=== PATIENT | male | born 1975 | race Caucasian/White ===

== ENCOUNTER 2021-03-01 16:40 | Emergency (ER) | payer OTHER, SELFPAY ==
--- NOTE | ~2021-03-01 | XR_ITS ---
EXAMINATION: XR chest 2V DATE: 03/01/2021 17:11 INDICATION: Shortness of breath, cough, tachypnea. COVID positive. TECHNIQUE: frontal and lateral views of the chest were obtained. COMPARISON: None FINDINGS: Patchy bilateral airspace opacities most prominent in the posterior mid and lower lung zones. No pleu ral effusion or pneumothorax. The cardiomediastinal silhouette is normal. Visualized bones and soft t issues are unremarkable. IMPRESSION: 1. Patchy bilateral airspace opacities, most likely COVID pneumonia. Reviewed, dictated and finalized at location [facility]
[2021-03-01 16:46] VITALS: BP 135/91; PULSE 111; RESP 36; TEMP 38.8; O2SAT 98
--- NOTE | 2021-03-01 17:34 | ED.URI ---
HPI - URI/Sore Throat General Chief Complaint: Upper Respiratory Infection Stated Complaint: cough Time Seen by Provider: 03/01/21 17:15 Source: patient and RN notes reviewed Mode of arrival: ambulatory Limitations: no limitations History of Present Illness HPI Narrative: Patient presents today complaining of a 3-day history of cough, rib pain bilaterally, and shortness of breath. He tested positive for COVID-19 approximately 10 days ago and said he has had a subsequent negative test.States those symptoms of his Covid have resolved, but these new symptoms of cough and shortness of breath came up 3 days ago. Denies history of asthma or COPD. He has been taking Mucinex and cough medicine at home without relief. He has not smoked a cigarette for approximately 1 month. He has not been vaccinated against COVID-19. MD elicited complaint: cough Related Data Home Medications Medication Instructions Recorded Confirmed No Home Medications 03/01/21 03/01/21 Allergies Allergy/AdvReac Type Severity Reaction Status Date / Time No Known Drug Allergies Allergy Unknown Verified 10/02/16 12:55 Review of Systems Review of Systems: CONSTITUTIONAL: Denies body aches, fever, chills, or sweats. EYES: Denies visual changes, redness, or discharge. ENT: Denies rhinorrhea, congestion, sore throat, or otalgia. CARDIOVASCULAR: Denies chest pain, palpitations, or edema. RESPIRATORY: +Cough, shortness of breath, bilateral rib pain GASTROINTESTINAL: Denies abdominal pain, nausea, vomiting, or diarrhea. GENITOURINARY: Denies dysuria or hematuria. SKIN: Denies rash, itching, or wounds. MUSCULOSKELETAL: Denies back pain, joint pain, or myalgia. NEUROLOGIC: Denies headache, numbness, tingling, or weakness. PSYCH: Denies depression or anxiety. PMFSH Comments At time of signature, I have reviewed and agree with nursing past medical, surgical, social and family history unless otherwise noted. Please see nursing chart for further information. There is no relevant family history pertinent to the presenting complaint Exam Narrative: GENERAL: Ill appearing, well-nourished. HEAD: Normocephalic, atraumatic. EYES: EOMI. No redness or drainage. Conjunctivae normal. ENT: Mucous membranes pink and moist. Nares clear. No rhinorrhea. TMs normal bilaterally. Throat Mildly Erythematous. Uvula midline. NECK: Normal AROM. Supple. No lymphadenopathy. CHEST: Tachypnea. Diminished in the bilateral bases. Occasional tripoding. HEART: Regular rate and rhythm. No murmur appreciated. Normal peripheral pulses. EXTREMITIES: Normal range of motion. No edema. SKIN: Warm, dry, no rash. Capillary refill normal. Normal skin turgor. NEURO: No focal deficits. Alert and oriented x3. Gait steady. PSYCH: Normal affect. No signs of depression or anxiety. Course Course Emergency Course: 1806- After DuoNeb, patient's breath sounds have slightly improved. Now upon auscultation, the crackles in his bilateral lungs can be heard. He is still very tachypneic. He agrees with plan for transfer to the ER. Vital Signs Vital signs: Vital Signs Temperature 101.8 F H 03/01/21 16:46 Pulse Rate 111 H 03/01/21 16:46 Respiratory Rate 36 H 03/01/21 16:46 Blood Pressure 135/91 H 03/01/21 16:46 Pulse Oximetry 98 03/01/21 16:46 Temperature 100.6 F H 03/01/21 18:19 Pulse Rate 101 H 03/01/21 18:19 Respiratory Rate 32 H 03/01/21 18:19 Blood Pressure 104/70 03/01/21 18:19 Pulse Oximetry 97 03/01/21 18:19 Reviewed. Transfer Transfered to: [facility] Transportation: Other (private vehicle) Transfer rationale: COVID pneumonia Accepting physician: Jb MDM - URI/Sore Throat Differential Diagnosis Differential diagnosis: Likely viral infection, bronchitis and other (Pneumonia) Imaging Data Radiologist's impression: ITS Impressions Chest X-Ray 03/01/21 17:31 IMPRESSION: 1. Patchy bilateral airspace opacities, most likely COVID pneumon
[2021-03-01 17:37] VITALS: TEMP 38.8
[2021-03-01] MEDS: ACETAMINOPHEN 500 MG TABLET 1000 MG PO (17:37)
[2021-03-01] MEDS: IPRATROPIUM BR 0.02% INH SOLN 0.5 MG/2.5 ML VIAL INHALATION (17:38)
[2021-03-01] MEDS: ALBUTEROL SULFATE NEB 2.5 MG/3 ML INH INHALATION (17:38)
[2021-03-01 18:19] VITALS: BP 104/70; PULSE 101; RESP 32; TEMP 38.1; O2SAT 97
== END 2021-03-01 18:23 | disposition short-term general hospital (02) ==
PROVIDERS: Emergency Provider Nurse Practitioner
DX: U07.1 COVID-19 (principal); J12.82 Pneumonia due to coronavirus disease 2019
CPT/HCPCS: 71046; 94640; 99203; A9270; G0463